=== PATIENT | male | born 1940 | race Caucasian/White ===

== ENCOUNTER 2016-11-12 21:55 | Emergency (ER) | payer OTHER ==
[2016-11-12 22:06] VITALS: BP 152/102; PULSE 78; RESP 16; TEMP 98.2; O2SAT 96
[2016-11-12] MEDS ORDERED: SULFAMETHOX/TMP 800/160 MG 1 TAB PO ONE (22:28)
--- NOTE | 2016-11-12 22:32 | UCPHY ---
H & P Patient Type: New Chief Complaint Nursing Narrative: C/o hard, red lump on back of neck. Pt states he noticed it today. Denies pain. Time Seen by Provider: 11/12/16 22:07 HPI/ROS: CHIEF COMPLAINT: Neck bump HISTORY OF PRESENT ILLNESS: Patient is a 76-year-old man who comes to the emergency department complaining of a abscess to the back of his neck. He 1st noticed yesterday. He has not had a fever. He has not been draining. He does have a history of cervical spine fusion several years ago. He does not have any neck pain or stiffness. Does not have a headache. REVIEW OF SYSTEMS: Constitutional: denies: chills, fever, recent illness, recent injury EENTM: denies: blurred vision, double vision, nose congestion Respiratory: denies: cough, shortness of breath Cardiac: denies: chest pain, irregular heart rate, lightheadedness, palpitations Gastrointestinal/Abdominal: denies: abdominal pain, diarrhea, nausea, vomiting, blood streaked stools Genitourinary: denies: dysuria, frequency, hematuria, pain Musculoskeletal: denies: joint pain, muscle pain Skin: See HPI Neurological: denies: headache, numbness, paresthesia, tingling, dizziness, weakness Hematologic/Lymphatic: denies: blood clots, easy bleeding, easy bruising Immunologic/allergic: denies: HIV/AIDS, transplant EXAM: GENERAL: Well-appearing, well-nourished and in no acute distress. HEAD: Atraumatic, normocephalic. EYES: Pupils equal round and reactive to light, extraocular movements intact, sclera anicteric, conjunctiva are normal. ENT: TMs normal, nares patent, oropharynx clear without exudates. Moist mucous membranes. NECK: Surgical scar clean dry and intact, about 3 cm laterally to the left there is a small 2 x 2 cm firm abscess. Small amount of purulence draining from the dome. LUNGS: Breath sounds clear to auscultation bilaterally and equal. No wheezes rales or rhonchi. HEART: Regular rate and rhythm without murmurs, rubs or gallops. ABDOMEN: Soft, nontender, normoactive bowel sounds. No guarding, no rebound. No masses appreciated. BACK: No CVA tenderness, no spinal tenderness, step-offs or deformities EXTREMITIES: Normal range of motion, no pitting or edema. No clubbing or cyanosis. NEUROLOGICAL: Cranial nerves II through XII grossly intact. Normal speech, normal gait. 5/5 strength, normal movement in all extremities, normal sensation PSYCH: Normal mood, normal affect. SKIN: see above Source: Patient - Personal History Current Tetanus Diphtheria and Acellular Pertussis (TDAP): Yes Tetanus Vaccine Date: within 10 years - Medical/Surgical History Hx Asthma: No Hx Chronic Respiratory Disease: No Hx Diabetes: No Hx Cardiac Disease: No Hx Renal Disease: No Hx Cirrhosis: No Hx Alcoholism: No Hx HIV/AIDS: No Hx Splenectomy or Spleen Trauma: No Other PMH: AFIB, hyperlipidemia, HTN, cervial and lumbar fusion, cholecystectomy - Family History Significant Family History: No pertinent family hx - Social History Smoking Status: Never smoked Alcohol Use: Sober Drug Use: None Constitutional: Initial Vital Signs Temperature (C) 36.8 C 11/12/16 22:04 Heart Rate 78 11/12/16 22:04 Respiratory Rate 16 11/12/16 22:04 Blood Pressure 152/102 H 11/12/16 22:04 O2 Sat (%) 96 11/12/16 22:04 O2 Delivery Mode Room Air Allergies/Adverse Reactions: No Known Allergies Allergy (Verified 11/12/16 22:06) Home Medications: Medication Instructions Recorded Klor-Con 07/21/11 Lipitor 07/21/11 Lisinopril 07/21/11 Sulfamethox/Tmp 800/160 mg 1 tab PO BID #14 tab 11/12/16 [Bactrim Ds] Xarelto 11/12/16 Medical Decision Making Procedures: Procedure: Abscess drainage. The patient's abscess was located on the Neck. I obtained verbal consent from the patient to drain the abscess who was informed about the possibility of bleeding and pain. The abscess was incised with 11 blade scalp and 2 cc of purulent drainage was expressed. I irrigated the wound and placed some packing. The patient tolerated the procedure well. The procedure was performed by myself. ED Course/Re-evaluation: The patient tolerated abscess drainage well. Was packed with tape gauze. Dressed taken term. Instructed to remove in 2 days. I will start him on Bactrim because of the proximity to his old surgical site. Differential Diagnosis: Partial list of the Differential diagnosis considered include but were not limited to; abscess, cellulitis and although unlikely based on the history and physical exam, I also considered surgical wound infection, osteomyelitis, meningitis. I discussed these differential diagnoses and the plan with the patient as well as the usual and expected course. The patient understands that the diagnosis is provisional and that in medicine we are not always correct and that further workup is often warranted. Usual and customary warnings were given. All of the patient's questions were answered. The patient was instructed to return to the emergency department should the symptoms at all worsen or return, otherwise to followup with the physician as we discussed. Departure - Departure Disposition: Home, Routine, Self-Care Clinical Impression: Abscess Condition: Fair Instructions: Abscess (ED) Referrals: Luigi Lanza MD [Primary Care Provider] - As per Instructions Prescriptions: Sulfamethox/Tmp 800/160 mg [Bactrim Ds] 1 tab PO BID #14 tab - PQRS PQRS Measurement: 134: Depression screening and followup, PRIME MD-PHQ2 (12 years and older) Over the last 2 weeks, how often have you been bothered by any of the following problems? 1. Feeling down, depressed, or hopeless? 2. Little interest or pleasure in doing things? Patient answered no to both 1 and 2 130: Documentation of medications. Reviewed all patient medications, doses, route and frequency. 226: Do you smoke? No. 47: 65 and older: Advanced care planning. Patient designates surrogate decision maker as spouse . Patient has advanced directive. 51: 18 years old and older with diagnosis of COPD, spirometry performance. Spirometry not performed; equipment not available. 52: 18 years old and older with COPD and symptoms of COPD or FEV1<60% predicted prescribed a B Agonist. Not applicable
== END 2016-11-12 22:46 | disposition home or self-care (01) ==
LOC: CED 21:55
PROC: 0H94X0Z Drainage of Neck Skin with Drainage Device, External Approach (ICD-10-PCS; principal; 2016-11-12)
DX: L02.11 Cutaneous abscess of neck (principal); I48.91 Unspecified atrial fibrillation; E78.5 Hyperlipidemia, unspecified; I10 Essential (primary) hypertension; Z98.1 Arthrodesis status
CPT/HCPCS: 10060; G0463

== ENCOUNTER 2016-11-14 14:12 | Emergency (ER) | payer OTHER ==
[2016-11-14 14:37] VITALS: BP 163/96; PULSE 84; RESP 16; TEMP 98.1; O2SAT 96
--- NOTE | 2016-11-14 15:06 | UCPHY ---
H & P Patient Type: Established Chief Complaint Nursing Narrative: removed packing from posterior cervical abscess i+d area. bleeding since . Continuously for the last hour. On Xarelto for AFIB. Lightheaded. Time Seen by Provider: 11/14/16 14:44 HPI/ROS: CHIEF COMPLAINT: Bleeding from prior abscess I&D site HISTORY OF PRESENT ILLNESS: The patient presents to the urgent care with complaints of bleeding from a prior abscess I&D site. The patient is currently on Xarelto for atrial fibrillation. He had a small abscess which was drained in the urgent care several days ago. The patient removed the packing today and developed bleeding which was not alleviated with direct pressure. The patient denies any acute pain, fever or other complaints. The patient took his dose of Xarelto as scheduled this morning. REVIEW OF SYSTEMS: A comprehensive 10 point review of systems is otherwise negative aside from elements mentioned in the history of present illness. Source: Patient Exam Limitations: No limitations - Personal History Current Tetanus Diphtheria and Acellular Pertussis (TDAP): Yes Tetanus Vaccine Date: within 10 years - Medical/Surgical History Hx Asthma: No Hx Chronic Respiratory Disease: No Hx Diabetes: No Hx Cardiac Disease: Yes Hx Renal Disease: No Hx Cirrhosis: No Hx Alcoholism: No Hx HIV/AIDS: No Hx Splenectomy or Spleen Trauma: No Other PMH: AFIB, hyperlipidemia, HTN, cervial and lumbar fusion, cholecystectomy - Family History Significant Family History: No pertinent family hx - Social History Smoking Status: Never smoked - Physical Exam Exam: General Appearance: Alert, no distress Respiratory: There are no retractions, lungs are clear to auscultation Cardiovascular: Regular rate and rhythm Gastrointestinal: Abdomen is soft and nontender, no masses, bowel sounds normal Neurological: A&O, normal motor function, normal sensory exam, normal cranial nerves Skin: 1 cm incision from prior abscess I and D clean dry and intact, scant venous bleeding noted from the incision, no recurrent hematoma Musculoskeletal: Neck is supple nontender Extremities: symmetrical, full range of motion Constitutional: Initial Vital Signs Temperature (C) 36.7 C 11/14/16 14:34 Heart Rate 84 11/14/16 14:34 Respiratory Rate 16 11/14/16 14:34 Blood Pressure 163/96 H 11/14/16 14:34 O2 Sat (%) 96 11/14/16 14:34 O2 Delivery Mode Room Air Allergies/Adverse Reactions: No Known Allergies Allergy (Verified 11/14/16 14:33) Home Medications: Medication Instructions Recorded Klor-Con 07/21/11 Lipitor 07/21/11 Lisinopril 07/21/11 Sulfamethox/Tmp 800/160 mg 1 tab PO BID #14 tab 11/12/16 [Bactrim Ds] Xarelto 11/12/16 Medical Decision Making ED Course/Re-evaluation: I injected lidocaine with epinephrine into the small incision which resulted in hemostasis. I have applied a mild pressure dressing with a gauze pad. The patient has had no recurrent bleeding. At this point time I do feel the patient can be discharged home. He should leave the dressing in place over the next 24 hours. The patient should follow up with his regular physician for a recheck. The patient should return to Urgent Care for any recurrent bleeding or other concerns. I did tell the patient would be okay to hold his next dose of Xarelto as he has no history of valvular heart disease. Differential Diagnosis: Differential diagnosis considered includes arterial bleeding, venous bleeding, hematoma Departure - Departure Disposition: Home, Routine, Self-Care Clinical Impression: Postoperative bleeding from incision Condition: Good Instructions: Abscess (ED) Additional Instructions: 1. Please hold your next dose of Xarelto. 2. Please remove the dressing in 24-48 hours. 3. Please return to the ED or urgent care for any recurrent bleeding, fever or other concerns Referrals: Luigi Lanza MD [Primary Care Provider] - As per Instructions - PQRS PQRS Measurement: 134: Depression screening and followup, PRIME MD-PHQ2 (12 years and older) Over the last 2 weeks, how often have you been bothered by any of the following problems? 1. Feeling down, depressed, or hopeless? 2. Little interest or pleasure in doing things? Patient answered no to both 1 and 2 130: Documentation of medications. Reviewed all patient medications, doses, route and frequency. 226: Do you smoke? No. 47: 65 and older: Advanced care planning. Patient has advanced directive.
== END 2016-11-14 15:17 | disposition home or self-care (01) ==
LOC: CED 14:12
PROC: 2W22X4Z Dressing of Neck using Bandage (ICD-10-PCS; principal; 2016-11-14)
DX: T81.89XA Other complications of procedures, not elsewhere classified, initial encounter (principal); I48.91 Unspecified atrial fibrillation; Z79.01 Long term (current) use of anticoagulants; R42 Dizziness and giddiness; E78.5 Hyperlipidemia, unspecified; I10 Essential (primary) hypertension; Z98.1 Arthrodesis status
CPT/HCPCS: G0463-PO

== ENCOUNTER → 2017-05-04 | Outpatient (CLI) | payer OTHER | LOC: CIMAGING 19:13 | PROVIDERS: ATTEND Physician Assistant | DX: M19.011 Primary osteoarthritis, right shoulder (principal) | CPT/HCPCS: 73030-PO ==

== ENCOUNTER → 2017-12-26 | Outpatient (CLI) | payer OTHER | LOC: CIMAGING 17:55 | PROVIDERS: ATTEND Internal Medicine | DX: M54.9 Dorsalgia, unspecified (principal); M41.26 Other idiopathic scoliosis, lumbar region; S32.010S Wedge compression fracture of first lumbar vertebra, sequela; Z95.0 Presence of cardiac pacemaker | CPT/HCPCS: 72100-PO ==

== ENCOUNTER → 2018-01-06 | Outpatient (CLI) | payer OTHER | LOC: CIMAGING 09:27 | PROVIDERS: ATTEND Internal Medicine | DX: T84.038A Mechanical loosening of other internal prosthetic joint, initial encounter (principal) | CPT/HCPCS: 72131-PO ==

== ENCOUNTER → 2018-04-13 | Outpatient (CLI) | payer OTHER | LOC: CIMAGING 15:16 | PROVIDERS: ATTEND Physician Assistant | DX: M19.022 Primary osteoarthritis, left elbow (principal) | CPT/HCPCS: 73080-PO ==

== ENCOUNTER → 2018-11-08 | Outpatient (CLI) | payer OTHER ==
[~2018-11-08] MED LIST: IOPAMIDOL (ISOVUE 370) 100 ML BTL IV ONE; LIDOCAINE 1% 300 MG/30 ML SDV ONE
== END ==
LOC: FIMAGING 10:10
PROVIDERS: ATTEND Orthopaedic Surgery
PROC: 3E0U3HZ Introduction of Radioactive Substance into Joints, Percutaneous Approach (ICD-10-PCS; principal; 2018-11-08)
DX: M19.011 Primary osteoarthritis, right shoulder (principal); M75.121 Complete rotator cuff tear or rupture of right shoulder, not specified as traumatic; M24.011 Loose body in right shoulder
CPT/HCPCS: 23350; 73040; 73201; Q9967

== ENCOUNTER 2019-02-05 05:46 | Inpatient (IN) | payer OTHER ==
--- NOTE | 2019-02-04 22:03 | PDGENHP ---
History and Physical History and Physical: celia is an 78 yo male presenting today for surgery by dr. ashley on 02/05/19 for right total shoulder arthroplasty due to right shoulder end-stage GH arthritis w / full-thickness supraspinatus tear soh: denies tobacco/rec drugs, occasional etoh fh: diabetes mother, and brother x2, heart disease father, mother, brother x2 pmh: arthritis, cvd, htn, hld, osteopenia, psh: pacemaker meds:xarelto, nitrostat, bystolic, celebrex, lisinopril, lipitor, tamsulosin, klor-con-10 allergies: nkda PE: 140 ff. strong empty can. strong subscap. no ER lag. +crepitus Assessment & Plan Plan: a/p:78 yo male presenting for RTSA due to right shoulder end-stage GH arthritis w/ full thickness supraspinatus tear -plan for traditional TSA w/ cuff repair -- surgery scheduled for 02/05/19 @ [facility] -instructed to stop zarelto 7 days prior to surgery -obtianed cardic clearence from dr. castillo -performed hibaclens -ancef 2gram iv pre op once -scd's/geeta mendoza b/l -AMPAROE nwb with sling use
[2019-02-05] MEDS ORDERED: LIDOCAINE 1% 2 ML INJ ID PRN (06:09)
[2019-02-05] MEDS ORDERED: ceFAZolin 2 GM/DEXTROSE 100 ML IV ONE (06:09)
[2019-02-05] MEDS ORDERED: LR 1,000 ML IV ONE (06:09)
--- NOTE | 2019-02-05 06:23 | PDHPUP ---
History & Physical Update H&P update statement: This history and physical update is based on an assessment of the patient which was completed after admission or registration (within 24 hours), but prior to the surgery/procedure. H&P update: no change in patient's condition since H&P completed
--- NOTE | 2019-02-05 06:32 | PDANEPAE ---
ANE History of Present Illness OA here for L TSA ANE Past Medical History - Cardiovascular History Hx Hypertension: Yes Hx Arrhythmias: Yes Hx Chest Pain: No Hx Coronary Artery / Peripheral Vascular Disease: Yes Hx CHF / Valvular Disease: No Hx Palpitations: No Cardiovascular History Comment: HEART BLOCK PACER PLACED 05/2010 - Pulmonary History Hx COPD: No Hx Asthma/Reactive Airway Disease: No Hx Recent Upper Respiratory Infection: No Hx Oxygen in Use at Home: No Hx Sleep Apnea: No Sleep Apnea Screening Result - Last Documented: Negative - Neurologic History Hx Cerebrovascular Accident: No Hx Seizures: No Hx Dementia: No - Endocrine History Hx Diabetes: No - Renal History Hx Renal Disorders: Yes Renal History Comment: NOCTURIA. PREV TURP - Liver History Hx Hepatic Disorders: No - Neurological & Psychiatric Hx Hx Neurological and Psychiatric Disorders: No - Cancer History Hx Cancer: Yes Cancer History Comment: SKIN - Congenital Disorder History Hx Congenital Disorders: No - GI History Hx Gastrointestinal Disorders: Yes Gastrointestinal History Comment: CONSTIPATION - Other Health History Other Health History: PSORIASIS TREY ARMS. SHORT TERM MEMORY ISSUES. LIMITED ROM RT SHLDR - Chronic Pain History Chronic Pain: Yes (RT SHLDR) - Surgical History Prior Surgeries: GREEN LIGHT LASER/TURP 06/2013. TREY CATARACT. LUMBAR FUSION. CERVICAL FUSION. WIN. TONSILLECTOMY ANE Review of Systems Review of Systems: - Exercise capacity Exercise capacity: >=4 METS - Pacemaker Pacemaker Bulk Pigment Reducer: Medtronic Date Pacemaker Last Checked: 05/2013 ANE Patient History - Allergies Allergies/Adverse Reactions: No Known Allergies Allergy (Verified 11/14/16 14:33) - Home Medications Home medications: home medication list seen and reviewed Home Medications: Atorvastatin Calcium [Lipitor 20 mg (*)] 20 mg PO DAILY 01/24/19 [Last Taken Unknown] Blue Emu 1 jarred TP DAILY 01/24/19 [Last Taken Unknown] Cholecalciferol Vit D3 [Vitamin D3 2000 units tab (OTC)] 2,000 units PO DAILY [Last Taken Unknown] Ciclopirox Olamine [Ciclopirox] 1 jarred TP DAILY 01/24/19 [Last Taken Unknown] Clinpro 5000 1.1% 1 jarred TP BID PRN 01/24/19 [Last Taken Unknown] Clobetasol 0.05% [Temovate Ointment] 1 jarred TP DAILY PRN 01/24/19 [Last Taken Unknown] Digoxin [Lanoxin 125 mcg (RX)] 125 mcg PO DAILY10 01/24/19 [Last Taken Unknown] Herbals/Supplements -Info Only 1 ea PO DAILY 01/24/19 [Last Taken Unknown] Hydrocortisone 1% [Hydrocortisone 1% cream (*)] 1 jarred TP Q2D 01/24/19 [Last Taken Unknown] Ketoconazole 2% [Nizoral Shampoo (*)] 1 jarred TP DAILY PRN 01/24/19 [Last Taken Unknown] Lidocaine [Lidocaine 4% cream] 1 jarred TP DAILY 01/24/19 [Last Taken Unknown] Lisinopril [Zestril 40 mg (*)] 40 mg PO DAILY 01/24/19 [Last Taken Unknown] Nebivolol HCl [Bystolic] 10 mg PO DAILY 01/24/19 [Last Taken Unknown] Nitroglycerin [Nitrostat 0.4 mg (*)] 0.4 mg SL Q5M PRN 01/24/19 [Last Taken Unknown] Pennsaid 2mg 2 mg PO DAILY PRN 01/24/19 [Last Taken Unknown] Potassium Cl [Klor-Con 20 meq (*)] 20 meq PO DAILY 01/24/19 [Last Taken Unknown] Rivaroxaban [Xarelto 10mg (*)] 20 mg PO DAILY 01/24/19 [Last Taken 01/28/19 08: 00] Tamsulosin HCl [Flomax 0.4 MG (*)] 0.4 mg PO DAILY 01/24/19 [Last Taken Unknown] Triamcinolone 0.1% [Triamcinolone 0.1% Cream (*)] 1 jarred TP DAILY 01/24/19 [Last Taken Unknown] celeCOXIB [CeleBREX] 100 mg PO BIDMEAL 01/24/19 [Last Taken Unknown] - NPO status NPO Status: no food or drink >8 hours - Anes Hx Anes Hx: slow to awaken from anesthesia - Smoking Hx Smoking Status: Never smoked - Alcohol Use Alcohol Use: Occasionally - Family Anes Hx Family Anes Hx: none ANE Labs/Vital Signs - Vital Signs Vital Signs: reviewed preoperatively; see RN documention for details Height: 175.26 cm Weight: 70.307 kg ANE Physical Exam - Airway Neck exam: FROM Mallampati Score: Class 2 Mouth exam: normal dental/mouth exam - Pulmonary Pulmonary: no respiratory distress, clear to auscultation - Cardiovascular Cardiovascular: regular rate and rhythym, no murmur, rub, or gallop - ASA Status ASA Status: III ANE Anesthesia Plan Anesthesia Plan: general endotracheal anesthesia, GA w LMA Regional Anesthesia: continuous NB, interscalene BP NB
[2019-02-05] MEDS ORDERED: ROPIVACAINE HCL 20 MG/10 ML INJ EP ONE (06:41)
[2019-02-05] MEDS ORDERED: EPINEPHrine 1 MG/ML INJ ONE (06:41)
[2019-02-05] MEDS ORDERED: ROPIVACAINE HCL 150 MG/30 ML INJ ONE (06:42)
[2019-02-05] MEDS ORDERED: DEXAMETHASONE 4 MG/ML VIAL ONE (06:42)
[2019-02-05] MEDS ORDERED: clonIDINE 1 MG/10 ML VIAL EP ONE (06:43)
[2019-02-05] MEDS ORDERED: LIDOCAINE 2% 5 ML SDV ONE (06:43)
[2019-02-05] MEDS ORDERED: fentaNYL 100 MCG/2 ML INJ ONE (06:43)
[2019-02-05] MEDS ORDERED: PROPOFOL 200 MG/20 ML VIAL ONE (07:08)
[2019-02-05] MEDS ORDERED: LIDOCAINE 2% 100 MG/5 ML SYR ONE (07:08)
[2019-02-05] MEDS ORDERED: PHENYLEPHRINE 10 MG/ML SDV ONE (07:51)
[2019-02-05] MEDS ORDERED: ROPIVACAINE 0.2% 1,100 MG in PUMP SET 1 EA NB SCH (08:15)
[2019-02-05] MEDS ORDERED: OXYCODONE/APAP 5/325 TAB PO PRN (09:40)
[2019-02-05] MEDS ORDERED: ACETAMINOPHEN 325 MG TAB PO PRN (09:40)
[2019-02-05] MEDS ORDERED: ONDANSETRON 4 MG/2 ML VIAL IVP PRN ×2 (09:40→09:41)
[2019-02-05] MEDS ORDERED: oxyCODONE IR 5 MG TAB PO PRN (09:41)
[2019-02-05] MEDS ORDERED: HYDROmorphONE/DILAUDID 1 MG/ML INJ IVP PRN (09:41)
[2019-02-05] MEDS ORDERED: HYDROCODONE/APAP 5/325 TAB PO PRN (09:41)
[2019-02-05] MEDS ORDERED: NALOXONE HCL 0.4 MG/ML INJ IVP PRN (09:41)
[2019-02-05] MEDS ORDERED: fentaNYL 100 MCG/2 ML INJ IVP PRN (09:41)
[2019-02-05] MEDS ORDERED: ACETAMINOPHEN 500 MG TAB PO PRN (09:41)
[2019-02-05] MEDS ORDERED: D5W 1/2 NS W/ 20 KCl/L 1,000 ML IV SCH (09:45)
--- NOTE | 2019-02-05 09:47 | POSTOPPROG ---
Post Op Note Date of Operation: 02/05/19 Surgeon: Ghazala Vega [employer] Teacher: Walter Whyte PA-C Anesthesia: GET(General Endotracheal) Pre-op Diagnosis: right shoulder primary osteoarthritis Post-op Diagnosis: right shoulder primary osteoarthritis Procedure: right total shoulder arthroplasty Inf/Abcess present in the surg proc area at time of surgery?: No EBL: 100-500 Complications: none Drains: Other (none)
--- NOTE | 2019-02-05 09:47 | POSTANESTH ---
Post Anesthetic Evaluation Cardiovascular Status: Normal, Stable, Similar to Pre-Op Cond Respiratory Status: Normal, Stable, Similar to Pre-op Cond. Level of Consciousness/Mental Status: Can Participate in Eval, Mildly Sleepy, Arousable Pain Control: Adequate, Prn Tx Ordered Nausea/Vomiting Control: Adequate, Prn Tx Ordered Complications Possibly Related to Anesthesia: None Noted
--- NOTE | 2019-02-05 10:28 | PDMN ---
Medical Necessity Medical necessity: [facility] [place] Shoulder Arthroplasty, 1 day: 78 yo s/p total shoulder arthroplasty, [facility] IP only
--- NOTE | 2019-02-05 11:13 | GOP ---
[f rep st] OPERATIVE REPORT DATE OF OPERATION: 02/05/2019 SURGEON: Ghazala Vega MD ORTHOTIC/PROSTHETIC PRACTITIONER: Walter Whyte PA-C, medically required for positioning of the arm during open total shoulder, careful retraction of vital neurovascular structures, and protection of the axillary nerve. PREOPERATIVE DIAGNOSIS: 1. Right shoulder osteoarthritis. 2. Loose bodies. 3. Rotator cuff tear, small full-thickness supraspinatus tear. POSTOPERATIVE DIAGNOSIS: 1. Right shoulder osteoarthritis. 2. Loose bodies. 3. Rotator cuff tear, small full-thickness supraspinatus tear. PROCEDURE PERFORMED: 1. Open right total shoulder replacement. 2. Open right rotator cuff repair. 3. Open loose body removal. ESTIMATED BLOOD LOSS: Minimal. INDICATIONS: The patient is an 78-year-old male with a right shoulder pain; osteoarthritis, end-stage; clinical radiographic and advanced imaging with a CT arthrogram confirm a small full-thickness perforation of the supraspinatus, as well as end-stage degenerative joint disease of the right shoulder. The patient had methicillin-sensitive Staphylococcus aureus and we completed a protocol of Hibiclens and mupirocin as per infection prevention measure. Cardiology preoperative medical risk stratification was obtained. Blood thinners were also stopped a week prior. DESCRIPTION OF PROCEDURE: Patient identified in the preoperative holding area. Consent, laterality, and preoperative antibiotics were confirmed delivered. All questions were answered. was available at the bedside. He underwent an interscalene block with a catheter by Anesthesia under ultrasound. Patient brought into the operating room. General anesthesia. A 20 degree head of bed beach chair position. The right shoulder was prepped and draped in a sterile fashion. Surgical time-out was performed. Ioban draping. Standard deltopectoral interval. He had excellent musculature. Very minimal fat. Cephalic vein was taken with the deltoid. We placed Kolbel retractors underneath the conjoined tendon and deltoid. We freed up the subdeltoid adhesions. Cleaned up the clavipectoral fascia. Identified the biceps. We did a biceps tenodesis to the pectoralis tendon. We did recess the pectoralis tendon about 1-1/2 cm. There was a small perforated tear of the supraspinatus that we tagged with a stitch. We did a lesser tuberosity osteotomy with a blunt curved osteotome. With progressive external rotation of the head, we were able to dislocate the head anteriorly. Removed the marginal osteophytes. Developed the anatomic neck. Did a freehand cut at about 20 degree retroversion. We prepped the humerus too and placed a humeral head protector. We used a Fukuda retractor and a Bankart retractor. We did an inferior. We used Kellogg retractor to protect the axillary nerve. We did an inferior and posterior capsular release. I did complete labrectomy. We took the arm out of the Steward trotter and placed on a padded Wynne. We had nice access to the glenoid. Did a cannulated reaming and Nautilus reaming device with a large reamer. We had a nice flat head. We used a guide for the pegged implant. Preps with third generation cementing technique. Placed cement in the top and the smiley face holes. Placed the real implant. We had a nice flush fit. We removed the excess cement. We then went back into the McConnel trotter and dislocated the head. We had Homans around the humeral osteotomy site. We drilled 2 holes in the bicipital groove for the specific Arthrex subscapularis repair protocol. We placed the implant 13 mm stem. We passed horizontal mattress stitches through the subscapularis and did the Arthrex mattress subscapularis repair technique. The arm moved through range of motion about 40% shuck posteriorly. External rotation about 40 degrees with a nice stability. We repaired the small perforated rotator cuff with a [id number] rotator interval closure. The wound was copiously washed out with 500 cc of warm normal saline. We did a 3-0 Monocryl and avtar and a sterile dressing with a Mepilex was applied. COMPLICATIONS: None. TOTAL SURGICAL TIME: 2 hours. DISPOSITION: Extubated to PACU in stable condition. ADDENDUM: Implants used was a 13 mm humeral stem, large glenoid, and a 54 x 21 mm head. /[id number]/MODL and [id number]/MODL [facility]
--- NOTE | 2019-02-05 12:33 | PDHOSCONS ---
History and Physical - Chief Complaint Consult - History of Present Illness Hospital medicine has been asked by Dr. Vega and team to consult Mr. Henriquez for his cardiac management, most notably his blood pressure and pacemaker, while in house. He is an 78 y/o male w/hx of coronary artery disease and pacemaker placed in 2010 s/p POD #0 of a right total shoulder arthroplasty d/t end-stage osteoarthritis. He was seen resting comfortably in his bed about to eat lunch. He reports doing well and only complaint was an achy pain felt to his right heel. Denies lightheadedness, chest pain, palpitations, or nausea. History Information - Allergies/Home Medication List Allergies/Adverse Reactions: No Known Allergies Allergy (Verified 02/05/19 07:03) Home Medications: Atorvastatin Calcium [Lipitor 20 mg (*)] 20 mg PO DAILY 01/24/19 [Last Taken Unknown] Blue Emu 1 jarred TP DAILY 01/24/19 [Last Taken Unknown] Cholecalciferol Vit D3 [Vitamin D3 2000 units tab (OTC)] 2,000 units PO DAILY [Last Taken Unknown] Ciclopirox Olamine [Ciclopirox] 1 jarred TP DAILY 01/24/19 [Last Taken Unknown] Clinpro 5000 1.1% 1 jarred TP BID PRN 01/24/19 [Last Taken Unknown] Clobetasol 0.05% [Temovate Ointment] 1 jarred TP DAILY PRN 01/24/19 [Last Taken Unknown] Digoxin [Lanoxin 125 mcg (RX)] 125 mcg PO DAILY10 01/24/19 [Last Taken Unknown] Herbals/Supplements -Info Only 1 ea PO DAILY 01/24/19 [Last Taken Unknown] Hydrocortisone 1% [Hydrocortisone 1% cream (*)] 1 jarred TP Q2D 01/24/19 [Last Taken Unknown] Ketoconazole 2% [Nizoral Shampoo (*)] 1 jarred TP DAILY PRN 01/24/19 [Last Taken Unknown] Lidocaine [Lidocaine 4% cream] 1 jarred TP DAILY 01/24/19 [Last Taken Unknown] Lisinopril [Zestril 40 mg (*)] 40 mg PO DAILY 01/24/19 [Last Taken Unknown] Nebivolol HCl [Bystolic] 10 mg PO DAILY 01/24/19 [Last Taken Unknown] Nitroglycerin [Nitrostat 0.4 mg (*)] 0.4 mg SL Q5M PRN 01/24/19 [Last Taken Unknown] Pennsaid 2mg 2 mg PO DAILY PRN 01/24/19 [Last Taken Unknown] Potassium Cl [Klor-Con 20 meq (*)] 20 meq PO DAILY 01/24/19 [Last Taken Unknown] Rivaroxaban [Xarelto 10mg (*)] 20 mg PO DAILY 01/24/19 [Last Taken 01/28/19 08: 00] Tamsulosin HCl [Flomax 0.4 MG (*)] 0.4 mg PO DAILY 01/24/19 [Last Taken Unknown] Triamcinolone 0.1% [Triamcinolone 0.1% Cream (*)] 1 jarred TP DAILY 01/24/19 [Last Taken Unknown] celeCOXIB [CeleBREX] 100 mg PO BIDMEAL 01/24/19 [Last Taken Unknown] I have personally reviewed and updated: family history, medical history, social history, surgical history Past Medical History: Osteopenia, Erectile Dysfunction, Back pain w/ radiculopathy, Enlarged prostate, Meibomian gland dysfunction, Pseudophakia - Past Medical History atrial fibrillation, arthritis, coronary artery disease, hypertension, hyperlipidemia - Surgical History Reports: cholecystectomy (2002), pacemaker/AICD (2009; syncope w/ complete heart block) - Family History Positive for: diabetes type II, CAD, hypertension - Social History Smoking Status: Never smoked Alcohol Use: Occasionally Drug Use: None Additional social history: . Review of Systems Review of Systems: ROS: 10pt was reviewed & negative except for what was stated in HPI & below Physical Exam Physical Exam: Lab data reviewed. Case discussed w/consulting physician, Dr. Yaima Quinn. Data from 02/01/19 are the following: Na: 139 K: 4.2 Cl: 106 Co2: 24 BUN/Cr: 25/1.2 Glucose: 81 Current CBC and BMP pending Temp Pulse Resp BP Pulse Ox 36.4 C 59 L 17 93/57 L 94 02/05/19 11:38 02/05/19 11:38 02/05/19 11:38 02/05/19 11:38 02/05/19 11:38 O2 (L/minute) 1.5 Constitutional: no apparent distress, appears nourished, not in pain Eyes: PERRL, anicteric sclera, EOMI Ears, Nose, Mouth, Throat: moist mucous membranes, hearing normal, ears appear normal, no oral mucosal ulcers Cardiovascular: regular rate and rhythym, no murmur, rub, or gallop, No edema Peripheral Pulses: 2+: dorsalis-pedis (R), dorsalis-pedis (L) Respiratory: no respiratory distress, no rales or rhonchi, clear to auscultation Gastrointestinal: normoactive bowel sounds, soft, non-tender abdomen, no palpable masses Genitourinary: other (Bladder fullness, attempting to void) Skin: warm, normal color, no rashes or abrasions, no fluctuance, no induration, No mottled Musculoskeletal: other (Right surgical shoulder numb from block) Neurologic: AAOx3, CN II-XII Intact Psychiatric: interacting appropriately, not anxious, not encephalopathic, thought process linear Lymph, Heme, Immunologic: no cervical LAD, no supraclavicular LAD Assessment & Plan Plan: 78 y/o male POD #0 right total shoulder arthroplasty. Hospital medicine has been asked to consult for cardiac management including blood pressure, pacemaker and home medications. Recent set of vitals are the following: BP 93/ 57 (while in the room and lying supine HOB 45 degrees 98/60), HR 59, Resp 17, Temp 36.4, Oxygen 1.5L NC 94%. #S/p right total shoulder arthroplasty -Follow recommendation from ortho -PT/OT to evaluate and treat -Pain management PO/IVP PRN -Ice #Hypotension -Currently, mildly hypotensive and asymptomatic -We will cont to monitor BP -His home BP medications will resume in AM -Need lab work baseline; CBC/BMP pending -Cont IVF #Hx of atrial fibrillation -Not in a-fib -On Xarelto, ok'ed by ortho to resume anytime, will resume in AM #Pacemaker -Cont to monitor Diet: Regular Code: Full VTE ppx: Stockings, SCDs, Xarelto Dispo: Admit to inpatient
[2019-02-05] MEDS ORDERED: [UNRECOGNIZED DRUG - OTHER] TP PRN (13:06)
[2019-02-05] MEDS ORDERED: CLOBETASOL 0.05% 15 GM OINT TUBE TP PRN (13:06)
[2019-02-05] MEDS ORDERED: NITROGLYCERIN 0.4 MG BTL SL PRN (13:06)
--- NOTE | 2019-02-05 14:49 | GCON ---
[f rep st] CONSULTATION DATE OF CONSULTATION: 02/05/2019 REFERRING PHYSICIAN: Ghazala Vega MD REASON FOR CONSULTATION: Medical management. HISTORY OF PRESENT ILLNESS: An 78-year-old male with right shoulder osteoarthritis, rotator cuff tea r, status post right shoulder replacement and cuff repair by Dr. Vega today. I saw the patient after his surgery and is doing well. He has no pain. No chest pain, shortness of breath, dizziness, or l ightheadedness. History of nonobstructive CAD, PMR, giant cell arteritis. Gets occasional substernal chest pain last ing for a few seconds. Underwent cardiac catheterization in 2018, with nonobstructive coronary disea se. REVIEW OF SYSTEMS: I completed a 10-point review of systems; negative except in the HPI. The patien t has not urinated since 5 this morning. He does have an enlarged prostate. He does not take antich olinergics or opioids at home. No fevers, chills, or sweats. No dysuria. PAST MEDICAL HISTORY: PMR, giant cell arteritis, CAD, paroxysmal atrial fibrillation on Xarelto, hyp ertension, hyperlipidemia, chronic pain. PAST SURGICAL HISTORY: Cholecystectomy, back/neck surgery. FAMILY HISTORY: Diabetes, hypertension. SOCIAL HISTORY: Lives in [place]. 48 years. NEW MEDICATIONS: See medication reconciliation. ALLERGIES: None. PHYSICAL EXAMINATION: VITAL SIGNS: Temperature 36.3, blood pressure 98/58, heart rate 60s, respirat ions 16, 90% on room air. GENERAL: Lying in bed, in no acute distress. HEENT: PERRLA. Moist muco us membranes. CV: Regular rate and rhythm. No lower extremity edema. LUNGS: Clear anteriorly. A BDOMEN: Soft, nontender. Positive bowel sounds. : No Pierce. No suprapubic tenderness. MUSCULO SKELETAL: Right shoulder dressed, clean, dry and intact. Ice packs. NEURO: Two through 12 are int act. PSYCH: Alert and oriented x3. LABORATORY: WBC: Hemoglobin 11, hematocrit 33, platelets 148 (baseline 13/37). BMP: Sodium 136, p otassium 4.3, chloride 108, creatinine 1, glucose 255. ASSESSMENT AND PLAN: 1. Right shoulder osteoarthritis: Status post replacement and cuff repair by Dr. Vega. Pain manage ment per Orthopedics. 2. Nonobstructive coronary artery disease: Currently without chest pain or shortness of breath. Co ntinue beta-kael, statin. Hold lisinopril with systolic blood pressure. 3. Hypertension: Hold lisinopril. 4. Paroxysmal atrial fibrillation: Digoxin, systolic. Could resume Xarelto in the morning. 5. History of polymyalgia rheumatica/giant cell arteritis: No current symptoms. 6. Urinary retention: May be secondary to anesthesia. We will hydrate. Check a bladder scan[facility] Thank you for this consultation. Please call if any questions. /[id number]/MODL
[2019-02-05] MEDS: ceFAZolin 2 GM/DEXTROSE 100 ML IV SCH ×2 (16:10→23:48)
[2019-02-05] MEDS: DOCUSATE SODIUM 100 MG CAP PO SCH (20:46)
[2019-02-05] MEDS: HYDROCODONE/APAP 5/325 TAB PO PRN ×2 (20:51→21:12)
[2019-02-05] MEDS: TAMSULOSIN HCL 0.4 MG CAP PO SCH (22:04)
--- NOTE | 2019-02-06 08:04 | SOAPPROG ---
SOAP Progress Note Assessment/Plan: a/p: 78 yo male pod#1 s/p right total shoulder arthroplasty by dr ashley. doing well over night w/o any major complaints. -RUE: nwb, near fulltime sling use, may do pendulums -appreciate hospitalist consult -cont home medications -pt/ot: pending evaluation -plan for dispo today if cleared by teams, probable home w/ home services or snf vs rehab pain plan: cont block tylenol 1000mg q8h prn pain celebrex 100 bid norco 5/325 1 tab po q4-6 h prn pain moderate oxycodone 5mg 1 tab po q4-6h prn pain severe/breakthrough proph: sanjay mendoza incentive spirometry -dispo pending pt/ot recs Subjective: celia denies issues over night, reports he would like to go home today if able. reports pain is well controlled on the block, reports sensation slowly improving gradually. no falls/accidents/traumas reported, but his arm slipped out of the sling once. voided twice since cardenas pulled at midnight. small bm and passing gas Objective: RUE: dressing c/d/i w/ no surrounding erythema/edema/ecchymosis/rashes, no shoulder rom, full elbow rom, grossly nvid w/ full digital rom, intac axillary w / 4-/5 wrist extension against resistance Vital Signs Temp Pulse Resp BP Pulse Ox 36.5 C 70 16 92/45 L 94 02/06/19 07:36 02/06/19 07:36 02/06/19 07:36 02/06/19 07:36 02/06/19 07:36 Laboratory Results 02/05/19 13:33 02/05/19 13:33 02/05/19 02/06/19 02/07/19 05:59 05:59 05:59 Intake Total 4690 Output Total 1420 150 Balance 3270 -150 - Pending Discharge Pending Discharge Within 24 Hours: Yes Pending Discharge Date: 02/07/19 Pending Discharge Time: 11:00 ICD10 Worksheet Patient Problems: Problems Problem Status Onset Osteoarthritis Acute
[2019-02-06] MEDS: TAMSULOSIN HCL 0.4 MG CAP PO SCH (08:29)
[2019-02-06] MEDS: NEBIVOLOL HCL 5 MG TAB PO SCH (08:30)
[2019-02-06] MEDS: ATORVASTATIN CALCIUM 20 MG TAB PO SCH (08:30)
[2019-02-06] MEDS: CHOLECALCIFEROL VIT D3 2,000 UNITS TAB/CAP PO SCH (08:30)
[2019-02-06] MEDS: POTASSIUM CL 20 MEQ TAB PO SCH (08:30)
[2019-02-06] MEDS: RIVAROXABAN 10 MG TAB PO SCH (08:31)
[2019-02-06] MEDS: DOCUSATE SODIUM 100 MG CAP PO SCH ×2 (08:31→20:46)
[2019-02-06] MEDS: CICLOPIROX OLAMINE TP SCH (08:32)
[2019-02-06] MEDS: BLUE EMU TP SCH (08:32)
[2019-02-06] MEDS: TRIAMCINOLONE 0.1% 15 GM CRTUBE TP SCH ×2 (08:33→08:34)
[2019-02-06] MEDS ORDERED: LIDOCAINE 4% 15 GM CREAM TP SCH (09:00)
[2019-02-06] MEDS ORDERED: LISINOPRIL 40 MG TAB PO SCH (09:00)
--- NOTE | 2019-02-06 09:04 | HOSPPROG ---
Hospitalist Progress Note Assessment/Plan: ASSESSMENT / DIAGNOSES: * Stable postop day 1 * History coronary disease, currently stable with no symptoms/signs of angina, arrhythmia, or heart failure * History AFib, currently in sinus rhythm - on xarelto without signs of bleeding * History of PMR, GCA, stable without any symptoms at this time PLANS: * Doing very well from hospital Medicine standpoint, stable for discharge * Will follow while he is here SUBJECTIVE: Did not seem very well but feels okay overall this morning Had some trouble with Pierce catheter is night which seemed obstructed and lead to pain which was resolved with removal of catheter, feels good now OBJECTIVE Vitals reviewed: All stable no fever Paving Machine Operator, my review: Exam: alert oriented skin warm dry color ok resps not labored lungs clear BSs heart regular limbs warm, no edema iv site ok Lab data: Blood sugar 87 this morning Objective: Vital Signs Temp Pulse Resp BP Pulse Ox 36.5 C 70 16 92/45 L 94 02/06/19 07:36 02/06/19 07:36 02/06/19 07:36 02/06/19 07:36 02/06/19 07:36 Laboratory Results 02/05/19 13:33 02/05/19 13:33 02/05/19 02/06/19 02/07/19 06:59 06:59 06:59 Intake Total 4690 Output Total 1420 150 Balance 3270 -150 ICD10 Worksheet Patient Problems: Problems Problem Status Onset Osteoarthritis Acute - ICD10 Problem Qualifiers (1) Osteoarthritis
[2019-02-06] MEDS ORDERED: NS 1,000 ML IV ONE (11:13)
[2019-02-06] MEDS: FLUTICASONE NASAL 120 SPRAYS/16 GM MDI EACHNARE SCH (13:16)
--- NOTE | 2019-02-06 13:20 | PDPAINCON ---
Pain Management Consultation Patient referred by : Gary - Subjective Pain at rest (/10): 0 Pain with activity (/10): 0 Pain is: no pain at all Side effects include: No drowsy, No itchiness, No nausea, No nausea/vomiting, No rash Activity: out of bed with assistance - Objective Technique: continuous peripheral nerve block Site: brachial plexus Continuous infusion: ropivicaine Catheter site: clean, dry, intact, no erythema/edema/exudate Sensory and motor exam: consistent with block Vital signs: stable - Assessment/Plan Assessment/Plan: pain well-controlled, continue current mgmt Additional comments: Pt seen and examined. Pain control excellent at this time. C/O "congestion" and "too deep of a voice". We reviewed the side effects of the BP NB, including: obdulia's syndrome, recurrent laryngeal nerve hemiparesis and diaphragmatic hemiparesis which may play a part in contributing to these symptoms. Provided reassurance to the patient that these are not harmful and likely to resolve as the block resolves. Discussed the care and removal of the catheter as the OnQ empties. They expressed understanding.
--- NOTE | 2019-02-06 15:35 | ASMTCMCOM ---
CM Note CM Note Notes: Pt had planned OA of shoulder. Pt resides with . PT rec SNF, pt did have low BP at time of PT eval. OT evaluated later in the day when pt was feeling better, OT rec home care. Spoke with pt and Payton about d/c options. They are encouraged by pt improvement with BP under control and think pt will be safe to go home, declining any information about SNF rehab. Pt and Payton will think about if they want home health care. CM to follow. D/c plan: TBD Date Signed: 02/06/2019 03:35 PM Electronically Signed By:SHAUNA Cespedes
[2019-02-06] MEDS ORDERED: TAMSULOSIN HCL 0.4 MG CAP PO SCH (21:00)
--- NOTE | 2019-02-07 08:03 | SOAPPROG ---
SOAP Progress Note Assessment/Plan: a/p: 78 yo male pod#1 s/p right total shoulder arthroplasty by dr ashley. doing well over night w/o any major complaints. -bruising due to surgical procedure in combination of xerelto -night time voiding in bed may be due to general anesthesia/cardenas/hx of prostate issues, should continue to improve, we will monitor, he reports he has voiding normally since 630 am -RUE: nwb, near fulltime sling use, may do pendulums -appreciate hospitalist consult -cont home medications -pt/ot: pending evaluation pain plan: cont block tylenol 1000mg q8h prn pain celebrex 100 bid norco 5/325 1 tab po q4-6 h prn pain moderate oxycodone 5mg 1 tab po q4-6h prn pain severe/breakthrough proph: sanjay mendoza incentive spirometry -plan for dispo today if cleared by PT/OT (already cleared by ortho/medicine), probable home w/ home services or snf vs rehab Subjective: celia reports he is doing okay, over night he experienced 5 episodes of wetting the bed, but voiding normally at 630 and has had no further issues of incontinence, he also endorses difficulty sleeping due to the alarms/wires, but pain is well controlled, denies fevers/chills, denies cp/sob. no episodes of dizziness/light headed ness since yesterday, working well w/ pt/ ot ready to go home. passing gas, and bm's Objective: RUE: dressing c/d/i w/o signs of infection, ecchymosis mid biceps into forearm, full elbow rom, full digital rom, grossly nvid, and increased strength with wrist extension against resistance Vital Signs Temp Pulse Resp BP Pulse Ox 36.6 C 61 18 132/59 H 94 02/07/19 03:28 02/07/19 03:28 02/07/19 03:28 02/07/19 03:28 02/07/19 03:28 Laboratory Results 02/05/19 13:33 02/05/19 13:33 02/06/19 02/07/19 02/08/19 05:59 05:59 05:59 Intake Total 4690 1850 Output Total 1420 450 Balance 3270 1400 - Pending Discharge Pending Discharge Within 24 Hours: Yes Pending Discharge Date: 02/08/19 Pending Discharge Time: 11:00 ICD10 Worksheet Patient Problems: Problems Problem Status Onset Osteoarthritis Acute
[2019-02-07 08:27] VITALS: BP 103/45
--- NOTE | 2019-02-07 08:40 | PDPAINCON ---
Pain Management Consultation Patient referred by : Gary - Subjective Pain at rest (/10): 2 Pain is: low, well controlled Activity: able to ambulate - Objective Technique: continuous peripheral nerve block Site: brachial plexus (interscalene) Continuous infusion: ropivicaine Catheter site: clean, dry, intact, no erythema/edema/exudate Sensory and motor exam: consistent with block Vital signs: stable - Assessment/Plan Assessment/Plan: pain well-controlled, continue current mgmt (Pt with good pain control with ISB catheter. Likely d/c home today. Reviewed instructions for catheter d/c at home. Will follow up via phone tomorrow.)
[2019-02-07] MEDS: ATORVASTATIN CALCIUM 20 MG TAB PO SCH (08:46)
[2019-02-07] MEDS: CHOLECALCIFEROL VIT D3 2,000 UNITS TAB/CAP PO SCH (08:48)
[2019-02-07] MEDS: FLUTICASONE NASAL 120 SPRAYS/16 GM MDI EACHNARE SCH (08:48)
[2019-02-07] MEDS: DOCUSATE SODIUM 100 MG CAP PO SCH (08:48)
[2019-02-07] MEDS: POTASSIUM CL 20 MEQ TAB PO SCH (08:49)
[2019-02-07] MEDS: NEBIVOLOL HCL 5 MG TAB PO SCH (08:49)
[2019-02-07] MEDS: RIVAROXABAN 10 MG TAB PO SCH (08:49)
[2019-02-07] MEDS: BLUE EMU TP SCH (08:55)
[2019-02-07] MEDS: CICLOPIROX OLAMINE TP SCH (08:55)
[2019-02-07] MEDS ORDERED: HYDROCORTISONE 1% CREAM TP SCH (09:00)
--- NOTE | 2019-02-07 12:23 | HOSPPROG ---
Hospitalist Progress Note Assessment/Plan: Shoulder Pain Hx of Afib Hx of CAD HTN, here with soft BP Chronic Pain Syndorme Earlier this a.m. had Interskalene Brachial Plexus Catheter. Pain is better since. There is some leaking of fluid that may be associated. Nursing is aware and will evaluate and communicate with primary team cont with BB Hold Lisinopril as BP has been soft cont home meds overall the pt is stable for discharge from a hospitalist perspective if the catheter that was placed is functioning correctly and there is no associated bleed. Subjective: pain is better. fluid leaking around right catheter placement Objective: Vital Signs Temp Pulse Resp BP Pulse Ox 36.7 C 61 17 103/45 L 98 02/07/19 08:00 02/07/19 08:00 02/07/19 08:00 02/07/19 08:00 02/07/19 08:00 Laboratory Results 02/05/19 13:33 02/05/19 13:33 02/06/19 02/07/19 02/08/19 05:59 05:59 05:59 Intake Total 4690 1850 Output Total 1420 450 Balance 3270 1400 - Physical Exam Constitutional: not in pain Eyes: PERRL, EOMI Ears, Nose, Mouth, Throat: moist mucous membranes, hearing normal Cardiovascular: regular rate and rhythym, No edema Respiratory: no respiratory distress, no rales or rhonchi, clear to auscultation Gastrointestinal: normoactive bowel sounds, soft, non-tender abdomen Skin: warm Neurologic: AAOx3 Psychiatric: interacting appropriately, not anxious, not encephalopathic Lymph, Heme, Immunologic: No petechiae ICD10 Worksheet Patient Problems: Problems Problem Status Onset Osteoarthritis Acute
--- NOTE | 2019-02-07 14:18 | PDIAF ---
- Diagnosis Diagnosis: right shoulder arthritis Code Status: Full Code - Medication Management Discharge Medications: electronically signed and located in the Home Medication List. - Orders Services needed: Physical Therapy, Occupational Therapy Diet Recommendation: no restrictions on diet Diet Texture: Regular Texture Diet Activity/Weight Bearing Restrictions: RUE NWB, may perform pendulums, near fulltime sling use Equipment: near fulltime sling use Additional Instructions: rle: nwb, near fulltime sling use, may do pendulums ( right upper extremity, non weight bearing) keep dressing clean/dry/intact follow up with orthopedics 7-10 days after discharge - Follow Up Care Current Providers and Referrals: Ghazala Vega MD [Medical Doctor] - follow up in 10 days Luigi Lanza MD [Primary Care Provider] -
--- NOTE | 2019-02-07 14:24 | ASMTLACE ---
LACE Length of stay for Answers: 2 days current admission Acuity / Level of Answers: Yes Care: Did the patient have an inpatient admission? Comorbidities - select Answers: Coronary Artery Disease all that apply Opioid dependence / Chronic pain Other Notes: HTN; HLD # of Emergency department Answers: 0 visits in the last 6 months Score: 12 Date Signed: 02/07/2019 02:23 PM Electronically Signed By:SHAUNA Cespedes
--- NOTE | 2019-02-07 15:36 | ASMTCMCOM ---
CM Note CM Note Notes: Today PT/OT rec Home Health Care. Pt and Payton agree to home care, choosing [facility] and [facility] has a shoulder program. Pt medically stable for d/c. [facility] orders sent to [facility] in [employer]. Pt d/c address/phone verified. Pt declines a follow up with [facility] PCP Micha. Pt reports he is an "MD MVP" so has easy access to appointments with [facility]. Date Signed: 02/07/2019 03:35 PM Electronically Signed By:SHAUNA Cespedes
--- NOTE | 2019-02-08 09:50 | ASDISCHSUM ---
Discharge Information Plan Status:Home with Home Health Medically Cleared to Leave: Discharge Date:02/07/2019 02:54 PM CM D/C Disposition: ADT D/C Disposition:Home Health Service Projected Discharge Date:02/07/2019 11:00 AM Transportation at D/C: Discharge Delay Reason: Follow-Up Date:02/07/2019 11:00 AM Discharge Slot: Final Diagnosis: Placement Information Referral Type:*Home Health Care Services Referral ID:[id number] Provider Name:[facility] [place] Address 1:[address] [place] [address] Address 2: City:[place] Selection Factors: State:[place] Patient Contact Information Contact Name:CHANDRIKACESARIO Relationship: Address:[address] City:[facility] Phone: State/Zip Code:[place] [address] Email: Financial Information Financial Class:Medicare Primary Plan Desc:MEDICARE INPATIENT Primary Plan Number:[id number] Secondary Plan Desc:[facility] MAT POS Secondary Plan Number:[id number] Assessment Information LACE LACE Length of stay for Answers: 2 days current admission Acuity / Level of Answers: Yes Care: Did the patient have an inpatient admission? Comorbidities - select Answers: Coronary Artery Disease all that apply Opioid dependence / Chronic pain Other Notes: HTN; HLD # of Emergency department Answers: 0 visits in the last 6 months Score: 12 Date Signed: 02/07/2019 02:23 PM Electronically Signed By:SHAUNA Cespedes JUHI CM Progress Note CM Note CM Note Notes: Pt had planned OA of shoulder. Pt resides with . PT rec SNF, pt did have low BP at time of PT eval. OT evaluated later in the day when pt was feeling better, OT rec home care. Spoke with pt and Payton about d/c options. They are encouraged by pt improvement with BP under control and think pt will be safe to go home, declining any information about SNF rehab. Pt and Payton will think about if they want home health care. CM to follow. D/c plan: TBD Date Signed: 02/06/2019 03:35 PM Electronically Signed By:SHAUNA Cespedes [facility] CM Progress Note CM Note CM Note Notes: Today PT/OT rec Home Health Care. Pt and Payton agree to home care, choosing [facility] and [facility] has a shoulder program. Pt medically stable for d/c. [facility] orders sent to [facility] in [employer]. Pt d/c address/phone verified. Pt declines a follow up with [facility] PCP Micha. Pt reports he is an "MD PARULP" so has easy access to appointments with [facility]. Date Signed: 02/07/2019 03:35 PM Electronically Signed By:SHAUNA Cespedes Intervention Information
[2019-02-08] MEDS ORDERED: DIGOXIN 125 MCG TAB PO SCH (10:00)
== END 2019-02-07 14:54 | disposition home health service (06) | DRG 483 ==
LOC: F3N 05:46 → PREOBSVTOIN 11:21
PROVIDERS: ADMIT Orthopaedic Surgery; ATTEND Orthopaedic Surgery
PROC: 0RRJ0JZ Replacement of Right Shoulder Joint with Synthetic Substitute, Open Approach (ICD-10-PCS; principal; 2019-02-05 07:15)
DX: M19.011 Primary osteoarthritis, right shoulder (principal); M24.011 Loose body in right shoulder; M75.101 Unspecified rotator cuff tear or rupture of right shoulder, not specified as traumatic; I10 Essential (primary) hypertension; N52.9 Male erectile dysfunction, unspecified; E78.5 Hyperlipidemia, unspecified; G89.29 Other chronic pain; I48.0 Paroxysmal atrial fibrillation; Z79.01 Long term (current) use of anticoagulants; Z95.0 Presence of cardiac pacemaker
CPT/HCPCS: 97110-GO; 97116-GP; 97162-GP; 97166-GO; 97530-GP; 97535-GO; C1713; J0171; J0690; J0735; J1100; J2001; J2370; J2704; J2795; J3010

== ENCOUNTER 2019-02-09 14:40 | Emergency (ER) | payer OTHER ==
[2019-02-09] MEDS ORDERED: TRANEXAMIC ACID 1,000 MG/10 ML VIAL ONE (15:19)
[2019-02-09] MEDS ORDERED: TRANEXAMIC ACID 1,000 MG/10 ML VIAL TP ONE (15:19)
[2019-02-09] MEDS ORDERED: OXYCODONE/APAP 5/325 TAB ONE (15:34)
[2019-02-09] MEDS ORDERED: OXYCODONE/APAP 5/325 TAB PO ONE (15:35)
--- NOTE | 2019-02-09 17:11 | EDPHY ---
H & P Stated Complaint: R ARM SWOLLEN, SKIN BROKEN, BLEEDING POST TOTAL SHOULDER Time Seen by Provider: 02/09/19 15:05 HPI/ROS: CHIEF COMPLAINT: Drainage right arm HISTORY OF PRESENT ILLNESS: This is an 78-year-old male who underwent total right shoulder replacement on February 05. He was discharged from the hospital this past Tuesday. He had been on Xarelto preoperatively, this was discontinued and has not been resumed, as best he can recall--he is not certain whether he took a dose of Xarelto yesterday or not). While he was in the hospital he had significant right arm and hand edema. Today while at physical therapy he developed a small skin tear distal to his elbow on the right and he has had persistent oozing from that site. He denies any bleeding from the surgical incisions. He has had no significant change in the pain in his shoulder. He has been taking oxycodone every 6 hr. Overall, he has been doing well since his discharge from the hospital. He is here today concerned about the persistent drainage from the skin tear site. REVIEW OF SYSTEMS: A ten system review of systems was performed and is negative with the exception of the items mentioned in the HPI. Past medical history: 1. Atrial fibrillation 2. Hypertension 3. Hyperlipidemia Past surgical history: 1. Right shoulder replacement 2. Cervical and lumbar fusions 3. Cholecystectomy Social history: He lives with his . No tobacco use. He is retired. General Appearance: Alert. Vital signs reviewed. ENT, Mouth: Mucous membranes are moist, no oropharyngeal erythema or edema. Respiratory: Lungs are clear to auscultation; no wheezes, rales, or rhonchi. Cardiovascular: Regular rate and rhythm; no murmur, rub, or gallop. Gastrointestinal: Abdomen is soft and nontender. Skin: Warm and dry, no rashes on exposed skin, normal color. Right arm: Surgical dressing in place. No fresh blood on the dressing, no warmth or erythema of the shoulder. The right arm is diffusely ecchymotic and edematous. There is a 1.5 cm skin tear distal to the right elbow with persistent serosanguineous drainage. The sling that he was wearing in the dressing that he had over that arm is saturated. Pulse: 2 +radial pulse on the right. Neurological: Alert and oriented. Moving all four extremities easily and equally. Sensation intact to light touch over her right arm. Psychiatric: Normal affect. - Personal History Current Tetanus Diphtheria and Acellular Pertussis (TDAP): Yes Tetanus Vaccine Date: within 10 years - Medical/Surgical History Hx Asthma: No Hx Chronic Respiratory Disease: No Hx Diabetes: No Hx Cardiac Disease: Yes Hx Renal Disease: No Hx Cirrhosis: No Hx Alcoholism: No Hx HIV/AIDS: No Hx Splenectomy or Spleen Trauma: No Other PMH: AFIB, hyperlipidemia, HTN, cervial and lumbar fusion, cholecystectomy - Social History Smoking Status: Never smoked Constitutional: Initial Vital Signs Temperature (C) 37.0 C 02/09/19 14:53 Heart Rate 60 02/09/19 14:53 Respiratory Rate 14 02/09/19 14:53 Blood Pressure 126/60 H 02/09/19 14:53 O2 Sat (%) 94 02/09/19 14:53 O2 Delivery Mode Room Air Allergies/Adverse Reactions: No Known Allergies Allergy (Verified 02/05/19 07:03) Home Medications: Medication Instructions Recorded Atorvastatin Calcium [Lipitor 20 20 mg PO DAILY 01/24/19 mg (*)] Blue Emu 1 jarred TP DAILY 01/24/19 Ciclopirox Olamine [Ciclopirox] 1 jarred TP DAILY 01/24/19 Clinpro 5000 1.1% 1 jarred TP BID PRN 01/24/19 Clobetasol 0.05% [Temovate 1 jarred TP DAILY PRN 01/24/19 Ointment] Digoxin [Lanoxin 125 mcg (RX)] 125 mcg PO DAILY10 01/24/19 Herbals/Supplements -Info Only 1 ea PO DAILY 01/24/19 Hydrocortisone 1% [Hydrocortisone 1 jarred TP Q2D 01/24/19 1% cream (*)] Ketoconazole 2% [Nizoral Shampoo 1 jarred TP DAILY PRN 01/24/19 (*)] Nitroglycerin [Nitrostat 0.4 mg 0.4 mg SL Q5M PRN 01/24/19 (*)] Pennsaid 2mg 2 mg PO DAILY PRN 01/24/19 Potassium Cl [Klor-Con 20 meq (*)] 20 meq PO DAILY 01/24/19 Tamsulosin HCl [Flomax 0.4 MG (*)] 0.4 mg PO HS 01/24/19 Triamcinolone 0.1% [Triamcinolone 1 jarred TP DAILY 01/24/19 0.1% Cream (*)] celeCOXIB [CeleBREX] 100 mg PO BIDMEAL 01/24/19 Docusate Sodium [Colace 100 MG (*)] 100 mg PO BID #20 cap 02/06/19 Percocet 5-325 mg Tablet 02/09/19 Medical Decision Making ED Course/Re-evaluation: TXA soaked gauze was placed over the skin tear. He continued with serosanguineous drainage. In fact, the overall edema of this arm did in hand decreased visibly during his stay in the department. It is possible to milk his hand and arm and produce drainage through the skin tear. I spoke with Orthopedic surgery, Dr. Abad health promotion coordinator for Dr. Vega, and a bulky dressing was recommended. I think that this is a reasonable approach in this setting, as the edema is being improved because of this drainage. A bulky dressing was applied and the patient is instructed on how to change this dressing. I anticipate that the drainage will subside with time. Precautions were given concerning the possibility of infection due to the skin tear. No evidence of infection at this time. Surgical dressing looks fine. Neurovascularly intact, right arm. I do not have other concerns about his shoulder or arm. - Data Points Medications Given: Discontinued Medications Oxycodone/Acetaminophen (Percocet 5/325) 1 tab PO EDNOW ONE Stop: 02/09/19 15:36 Last Admin: 02/09/19 15:36 Dose: 1 tab Tranexamic Acid (Cyklokapron) 500 mg TP EDNOW ONE Stop: 02/09/19 15:20 Last Admin: 02/09/19 15:30 Dose: 500 mg Departure - Departure Disposition: Home, Routine, Self-Care Clinical Impression: Arm edema Condition: Good Instructions: Edema (ED) Additional Instructions: You will continue to have a small amount of bleeding and a large amount of water oozing from the small tear in the skin of your arm. This is nothing to worry about. You can change the dressing if it becomes soaked. Do not let your arm stay in a wet bandage. Wear the sling as instructed. Keep your follow-up appointment on Tuesday. If you have any problems over the weekend, Dr. Abad is health promotion coordinator for Dr. Vega. I spoke with Dr. Abad on the phone today, so he knows about what is going on. If you call the office they will put you in touch with him, if needed. Referrals: Luigi Lanza MD [Primary Care Provider] - As per Instructions
[2019-02-09 17:49] VITALS: BP 132/72
== END 2019-02-09 17:35 | disposition home or self-care (01) ==
LOC: CED 14:40
DX: R60.0 Localized edema (principal); I48.91 Unspecified atrial fibrillation; I10 Essential (primary) hypertension; E78.5 Hyperlipidemia, unspecified; Z98.890 Other specified postprocedural states
CPT/HCPCS: 99283; A4565

== ENCOUNTER → 2019-03-05 | Outpatient (CLI) | payer OTHER | LOC: EMCIMAGING 14:12 ==